=== PATIENT | female | born 1985 ===

== ENCOUNTER 2017-09-13 06:24 | Inpatient (IN) | payer OTHER ==
[~2017-09-13] VITALS: Ht 157.5 cm; Wt 88.9 kg
[~2017-09-13 06:24] MED LIST: PRENA1 CHEW TA1.4 MG
== END 2017-09-16 12:36 | DRG 775 ==
LOC: LDR 06:24 → OB/GYN 06:24 → LDR 13:00 → OB/GYN 09-14 01:48
PROC: 3E0P7VZ Introduction of Hormone into Female Reproductive, Via Natural or Artificial Opening (ICD-10-PCS; 2017-09-13)
PROC: 4A1HXCZ Monitoring of Products of Conception, Cardiac Rate, External Approach (ICD-10-PCS; 2017-09-13)
PROC: 10E0XZZ Delivery of Products of Conception, External Approach (ICD-10-PCS; principal; 2017-09-14)
DX: O80 Encounter for full-term uncomplicated delivery (principal); Z37.0 Single live birth; Z3A.39 39 weeks gestation of pregnancy